=== PATIENT | female | born 1980 | race African-American/Black ===

== ENCOUNTER 2018-08-21 23:13 | Emergency (ER) | payer OTHER ==
[~2018-08-21] VITALS: Ht 160 cm; Wt 99.0 kg
[~2018-08-21 23:13] MED LIST: AMOX/K CLAV875 M1 PO; BENADRYL 50MG C50 MG OR; GENOPTIC0.3 % OD; LORTAB 10-325 M1 TAB PO; MEDDOSEPAK PO; NAPROSYN500 MG OR; NAPROSYN500 MG PO; NO; PRENATAL VITAMINS; RELPAX40 MG OR; SPRINTEC 2828 DAY PO; TOPAMAX100 MG OR; VICOPROFEN PO
[2018-08-21] MEDS ORDERED: PRENATA3 PO (23:41)
[2018-08-21 23:55] LABS: URINE BILIRUBIN - DIPSTICK NEGATIVE (NEGATIVE); URINE BLOOD DIPSTICK NEGATIVE (NEGATIVE); URINE COLOR YELLOW; URINE GLUCOSE - DIPSTICK NEGATIVE (NEGATIVE); URINE KETONE NEGATIVE (NEGATIVE); URINE LEUK ESTERASE NEGATIVE (NEGATIVE); URINE NITRITE - DIPSTICK NEGATIVE (Negative); URINE PH 6.5 (4.5-8.0); URINE PROTEIN - DIPSTICK NEGATIVE (NEG-TRACE); URINE SPECIFIC GRAVITY 1.025; URINE UROBILINOGEN - DIPSTICK 0.2 E.U./dL (0.2)
[2018-08-22] LABS: HEMATOCRIT 33.1 % (37.0-47.0); HEMOGLOBIN 11.6 g/dl (12.0-16.0); IMMATURE GRANULOCYTES 0.6 % (0.0-5.0); MEAN CORPUSCULAR HGB 32.6 pG CALC (26.0-32.0); NEUT# 4.42 thou/uL (2.00-7.15); RED BLOOD COUNT 3.56 mill/uL (4.20-5.60)
[2018-08-22 00:12] LABS: ALBUMIN 3.5 g/dL (3.2-5.0); ALKALINE PHOSPHATASE 79 u/l (38-126); AMYLASE 118 u/l (30-110); BILIRUBIN, TOTAL 0.2 mg/dL (0.0-1.4); BUN 12 mg/dL (7-17); BUN/CREATININE RATIO 25 (12-20 (CALC)); CHLORIDE 108 mmol/l (95-108); CREATININE 0.5 mg/dL (0.5-1.0); GFR > 60 ML/MIN (>=60 (CALC)); GFR FOR AFR.AMER. > 60 ML/MIN (>=60 (CALC)); LIPASE 765 u/l (23-300); POTASSIUM 3.7 mmol/l (3.5-5.1); SGOT/AST 25 u/l (14-36); SODIUM 137 mmol/l (137-146); TOTAL PROTEIN 6.6 g/dL (6.3-8.2)
[2018-08-22 00:17] LABS: ANION GAP 13 (6-22 (CALC)); CARBON DIOXIDE 20 mmol/l (22-30)
[2018-08-22 01:00] VITALS: BP 121/68
== END 2018-08-22 01:00 | disposition short-term general hospital (02) ==
LOC: ED 23:13
PROVIDERS: Family Medicine
DX: O26.892 Other specified pregnancy related conditions, second trimester (principal); K85.90 Acute pancreatitis without necrosis or infection, unspecified; Z3A.17 17 weeks gestation of pregnancy; R10.11 Right upper quadrant pain; R10.12 Left upper quadrant pain; R11.0 Nausea; K59.00 Constipation, unspecified

== ENCOUNTER 2018-10-01 17:42 | Emergency (ER) | payer OTHER ==
[~2018-10-01] VITALS: Ht 160 cm; Wt 98.6 kg
[~2018-10-01 17:42] MED LIST changes: +PRENATA3 PO
[2018-10-01] MEDS ORDERED: CLEOCIN150 MG PO (18:05)
[2018-10-01 18:10] VITALS: BP 136/85
== END 2018-10-01 18:10 | disposition home or self-care (01) ==
LOC: ED 17:42
DX: S20.361A Insect bite (nonvenomous) of right front wall of thorax, initial encounter (principal); L03.313 Cellulitis of chest wall; W57.XXXA Bitten or stung by nonvenomous insect and other nonvenomous arthropods, initial encounter; Y92.009 Unspecified place in unspecified non-institutional (private) residence as the place of occurrence of the external cause

== ENCOUNTER 2018-10-03 13:16 | Emergency (ER) | payer OTHER ==
[~2018-10-03] VITALS: Ht 160 cm; Wt 100.0 kg
[~2018-10-03 13:16] MED LIST changes: +CLEOCIN150 MG PO
[2018-10-03] MEDS ORDERED: PRENATA3 PO (13:43)
[2018-10-03 14:38] VITALS: BP 165/54
== END 2018-10-03 14:57 | disposition home or self-care (01) ==
LOC: ED 13:16
DX: O98.819 Other maternal infectious and parasitic diseases complicating pregnancy, unspecified trimester (principal); L02.213 Cutaneous abscess of chest wall; B95.62 Methicillin resistant Staphylococcus aureus infection as the cause of diseases classified elsewhere; Z3A.00 Weeks of gestation of pregnancy not specified

== ENCOUNTER 2018-12-25 19:23 | Emergency (ER) | payer OTHER ==
[~2018-12-25] VITALS: Ht 160 cm; Wt 105.0 kg
[2018-12-25] MEDS ORDERED: AMOXICILLIN/PO500 MG PO (20:38)
[2018-12-25 21:01] VITALS: BP 138/89
== END 2018-12-25 21:01 | disposition home or self-care (01) | DRG 833 ==
LOC: ED 19:23
DX: O99.513 Diseases of the respiratory system complicating pregnancy, third trimester (principal); J02.9 Acute pharyngitis, unspecified; O99.89 Other specified diseases and conditions complicating pregnancy, childbirth and the puerperium; H66.91 Otitis media, unspecified, right ear; Z3A.35 35 weeks gestation of pregnancy

== ENCOUNTER 2020-04-12 08:59 | Emergency (ER) | payer OTHER ==
[~2020-04-12] VITALS: Ht 160 cm; Wt 86.6 kg
[~2020-04-12 08:59] MED LIST changes: +AMOXICILLIN/PO500 MG PO
[2020-04-12 13:15] VITALS: BP 106/58
== END 2020-04-12 13:15 | disposition home or self-care (01) | DRG 103 ==
LOC: ED 08:59
DX: G43.909 Migraine, unspecified, not intractable, without status migrainosus (principal)

== ENCOUNTER 2021-04-02 12:35 | Emergency (ER) | payer OTHER ==
[~2021-04-02] VITALS: Ht 160 cm; Wt 99.0 kg
[2021-04-02 13:36] LABS: IMMATURE GRANULOCYTES 0.1 % (0.0-5.0); MEAN CELL VOLUME 97.1 fL CALC (80.0-100.0); MEAN CORPUSCULAR HGB 32.4 pG CALC (26.0-32.0); MEAN CORPUSCULAR HGB CONC 33.4 g/dL CAL (32.0-36.0); NEUT# 5.11 thou/uL (2.00-7.15); RED BLOOD COUNT 4.07 mill/uL (4.20-5.60)
[2021-04-02 13:38] LABS: HEMATOCRIT 39.5 % (37.0-47.0); HEMOGLOBIN 13.2 g/dl (12.0-16.0)
[2021-04-02 13:47] LABS: ALBUMIN 4.2 g/dL (3.2-5.0); ALKALINE PHOSPHATASE 90 u/l (38-126); BUN 16 mg/dL (7-17); BUN/CREATININE RATIO 18 (12-20 (CALC)); CHLORIDE 106 mmol/l (95-108); CREATININE 0.9 mg/dL (0.5-1.0); GFR > 60 ML/MIN (>=60 (CALC)); GFR FOR AFR.AMER. > 60 ML/MIN (>=60 (CALC)); POTASSIUM 3.6 mmol/l (3.5-5.1); SGOT/AST 36 u/l (14-36); SODIUM 139 mmol/l (137-146); TOTAL PROTEIN 7.9 g/dL (6.3-8.2)
[2021-04-02 13:49] LABS: ANION GAP 10 (6-22 (CALC)); BILIRUBIN, TOTAL 0.4 mg/dL (0.0-1.4); CARBON DIOXIDE 27 mmol/l (22-30)
[2021-04-02 16:09] VITALS: BP 132/82
== END 2021-04-02 16:15 | disposition home or self-care (01) | DRG 552 ==
LOC: ED 12:35
PROVIDERS: Family Medicine
DX: S16.1XXA Strain of muscle, fascia and tendon at neck level, initial encounter (principal); Y04.0XXA Assault by unarmed brawl or fight, initial encounter; Y92.009 Unspecified place in unspecified non-institutional (private) residence as the place of occurrence of the external cause
CPT/HCPCS: Q9967

== ENCOUNTER 2022-02-17 19:58 | Emergency (ER) | payer OTHER ==
[~2022-02-17] VITALS: Ht 160 cm; Wt 100.8 kg
[2022-02-17 20:15] VITALS: BP 145/89
[2022-02-17 20:30] VITALS: BP 138/80
[2022-02-17 20:45] VITALS: BP 123/82
[2022-02-17 23:25] VITALS: BP 123/82
== END 2022-02-17 23:25 | disposition home or self-care (01) | DRG 552 ==
LOC: ED 19:58
DX: S16.1XXA Strain of muscle, fascia and tendon at neck level, initial encounter (principal); S50.12XA Contusion of left forearm, initial encounter; S09.90XA Unspecified injury of head, initial encounter; W18.31XA Fall on same level due to stepping on an object, initial encounter

== ENCOUNTER 2022-05-11 00:13 | Emergency (ER) | payer OTHER ==
[~2022-05-11] VITALS: Ht 160 cm; Wt 97.5 kg
[2022-05-11 00:22] VITALS: BP 143/88
[2022-05-11] MEDS ORDERED: OZEMPIC2 MG (00:27)
[2022-05-11 00:52] LABS: URINE BILIRUBIN - DIPSTICK NEGATIVE (NEGATIVE); URINE BLOOD DIPSTICK NEGATIVE (NEGATIVE); URINE COLOR YELLOW; URINE GLUCOSE - DIPSTICK NEGATIVE (NEGATIVE); URINE KETONE TRACE mg/dL (NEGATIVE); URINE LEUK ESTERASE NEGATIVE (NEGATIVE); URINE PROTEIN - DIPSTICK NEGATIVE (NEG-TRACE); URINE UROBILINOGEN - DIPSTICK 0.2 E.U./dL (0.2)
[2022-05-11 01:04] LABS: URINE NITRITE - DIPSTICK NEGATIVE (Negative)
[2022-05-11] MEDS ORDERED: VOLTAREN75 MG PO (01:08)
[2022-05-11] MEDS ORDERED: ORPHENADRINE100 MG PO (01:08)
[2022-05-11 01:25] VITALS: BP 143/88
== END 2022-05-11 01:35 | disposition home or self-care (01) | DRG 563 ==
LOC: ED 00:13
PROVIDERS: Family Medicine
DX: S39.012A Strain of muscle, fascia and tendon of lower back, initial encounter (principal); X50.9XXA Other and unspecified overexertion or strenuous movements or postures, initial encounter

== ENCOUNTER 2022-11-08 21:10 | Emergency (ER) | payer OTHER ==
[~2022-11-08] VITALS: Ht 160 cm; Wt 100.0 kg
[~2022-11-08 21:10] MED LIST changes: +ORPHENADRINE100 MG PO; +OZEMPIC2 MG; +VOLTAREN75 MG PO
[2022-11-08 23:36] VITALS: BP 154/89
== END 2022-11-09 00:45 | disposition home or self-care (01) | DRG 103 ==
LOC: ED 21:10
DX: G43.909 Migraine, unspecified, not intractable, without status migrainosus (principal)

== ENCOUNTER 2023-10-28 15:39 | Emergency (ER) | payer MEDICAID ==
[~2023-10-28] VITALS: Ht 160 cm; Wt 92.3 kg
[2023-10-28 15:58] VITALS: BP 120/77
[2023-10-28 16:00] VITALS: BP 128/81
[2023-10-28] MEDS ORDERED: NURTEC75 MG (16:06)
[2023-10-28] MEDS ORDERED: MOUNJARO2.5 MG (16:06)
[2023-10-28 16:15] VITALS: BP 118/77
[2023-10-28 16:30] VITALS: BP 126/82
[2023-10-28] MEDS ORDERED: NAPROXEN500 MG PO (17:51)
[2023-10-28 17:57] VITALS: BP 126/82
== END 2023-10-28 18:07 | disposition home or self-care (01) ==
LOC: ED 15:39
DX: S63.296A Dislocation of distal interphalangeal joint of right little finger, initial encounter (principal); W23.0XXA Caught, crushed, jammed, or pinched between moving objects, initial encounter; Y93.89 Activity, other specified; Y92.009 Unspecified place in unspecified non-institutional (private) residence as the place of occurrence of the external cause